=== PATIENT | female | born 1945 ===

== ENCOUNTER 2019-02-23 12:45 | Inpatient (IN) | payer OTHER ==
[~2019-02-23] VITALS: Ht 165.1 cm; Wt 75.3 kg
[2019-02-23] MEDS ORDERED: LIPITOR40 MG PO (14:41)
[2019-02-23] MEDS ORDERED: NEURONTIN300 MG PO (14:41)
[2019-02-23] MEDS ORDERED: RANITIDINE HCL300 M1 PO (14:42)
[2019-02-23] MEDS ORDERED: CARAFATE1 GM PO (14:42)
[2019-02-23] MEDS ORDERED: OMEPRAZOLE20 M1 PO (14:42)
[2019-02-23] MEDS ORDERED: DICLOFENAC SOD100 GM (14:44)
[2019-02-23] MEDS ORDERED: DILTIAZEM 24HR180 MG PO (14:44)
[2019-03-05] MEDS ORDERED: XARELTO10 MG PO (08:20)
[2019-03-05] MEDS ORDERED: INTEGRA PLUS C1 EACH PO (08:20)
[2019-03-05] MEDS ORDERED: OXYC1TAB9 PO (08:20)
== END 2019-03-05 13:40 | DRG 470 ==
LOC: O/R 12:45 → SURH 03-02 05:00 → O/R 03-02 05:00 → SURH 03-02 13:14
PROVIDERS: ADMIT Orthopaedic Surgery Sports Medicine
PROC: 0SRC0J9 Replacement of Right Knee Joint with Synthetic Substitute, Cemented, Open Approach (ICD-10-PCS; principal; 2019-03-02 10:00)
DX: M17.11 Unilateral primary osteoarthritis, right knee (principal); I10 Essential (primary) hypertension; I49.8 Other specified cardiac arrhythmias; E78.49 Other hyperlipidemia